=== PATIENT | female | born 1965 | race Caucasian/White ===

== ENCOUNTER 2017-03-28 12:46 | Emergency (ER) | payer SELFPAY ==
[~2017-03-28] VITALS: Ht 162.6 cm; Wt 60.0 kg
[~2017-03-28 12:46] MED LIST: MACR100C PO; SERO100T PO
[2017-03-28 12:50] VITALS: BP 132/87; PULSE 85; RESP 17; TEMP 98.4; O2SAT 99
--- NOTE | 2017-03-28 13:07 | PD ---
HPI . anxious about converting to Mosque Chief Complaint: Psychiatric Symptoms Time Seen by Provider: 13:06 Travel History International Travel<30 days: No Contact w/Intl Traveler<30days: No Traveled to known affect area: No History of Present Illness HPI 51-year-old female with multiple psychiatric visits here to the hospital complaining of being anxious about converting to Mosque. She tells me there are not enough resources or locations for her to get help with this. She says that she hears voices and they tell her to calm down. She said she is here hoping that someone can help her, but she also wants to leave. She denies any suicide or homicide. She also says she needs a place to stay. PFSH Past Medical History Autoimmune Disease: No Bipolar Disorder: Yes Anxiety: Yes Depression: Yes Cancer: No Cardiovascular Problems: No Chemotherapy: No Cerebrovascular Accident: No Diabetes: No Diminished Hearing: No Endocrine: No Gastrointestinal Disorders: No Headaches: No Immune Disorder: No Musculoskeletal: No Neurologic: Yes Psychiatric: Yes Reproductive: Yes Immunizations Current: Yes Migraines: Yes Radiation Therapy: No Schizophrenia: Yes Seizures: No Thyroid Disease: No PNEUMOCCOCAL Vaccine (Year): 2 ?: Not Menopausal: No : 3 : 3 Dilation and Curettage (D&C): Yes Past Surgical History Abdominal Surgery: No Cardiac Surgery: No Ear Surgery: No Endocrine Surgery: No Eye Surgery: No Genitourinary Surgery: No Gynecologic Surgery: Yes Neurologic Surgery: No Oral Surgery: No Thoracic Surgery: No Tonsillectomy: Yes ( CHILD) Other Surgery: Yes (LT HAND SX) Social History Alcohol Use: Yes (DAILY) Tobacco Use: Yes (ALOT) Substance Use: Yes Allergies-Medications (Allergen,Severity, Reaction): Coded Allergies: No Known Allergies (Verified , 09/28/15) Reported Meds & Prescriptions Reported Meds & Active Scripts Active Macrobid (Nitrofurantoin Macrocrystals) 100 Mg Cap 100 Mg PO BID Reported Seroquel 100 mg (Quetiapine Fumarate) 100 Mg Tab 100 Mg PO HS Review of Systems General / Constitutional: No: Fever Eyes: No: Visual changes HENT: No: Headaches Cardiovascular: No: Chest Pain or Discomfort Respiratory: No: Shortness of Breath Gastrointestinal: No: Abdominal Pain Genitourinary: No: Dysuria Musculoskeletal: No: Pain Skin: No Rash Neurologic: No: Weakness Psychiatric: Positive: Anxiety, No: Depression Endocrine: No: Polydipsia Hematologic/Lymphatic: No: Easy Bruising Physical Exam Narrative GENERAL: AAO x 3, no acute distress, Well-nourished, well-developed patient. SKIN: Warm and dry. No visible rashes or bruising. HEAD: Normocephalic and atraumatic. EYES: No scleral icterus. No injection or drainage. EOM intact, PERRLA ENT: No nasal drainage noted. Mucous membranes pink. Airway patent. NECK: Supple, trachea midline. No JVD. CARDIOVASCULAR: tachycardic on exam RESPIRATORY: Breath sounds equal bilaterally. No accessory muscle use. No rhonchi or rales. GASTROINTESTINAL: Abdomen soft, non-tender, nondistended. EXTREMITIES: No cyanosis or edema. BACK: No obvious deformity. No CVA tenderness. NEURO: CN II-12 intact, clinical documentation improvement specialist strength normal b/l, UE and LE 5/5, no focal deficits PSYCH: AAO x 3, happy and cheerful, slightly bizarre Data Data Last Documented VS Vital Signs Date Time Temp Pulse Resp B/P Pulse Ox O2 Delivery O2 Flow Rate FiO2 03/28/17 12:50 98.4 85 17 132/87 99 Orders Complete Blood Count With Diff (03/28/17 13:13) Comprehensive Metabolic Panel (03/28/17 13:13) Ed Urine Pregnancytest Poc (03/28/17 13:13) Psych Screen (03/28/17 13:13) Drug Screen, Random Urine (03/28/17 13:13) Alcohol (Ethanol) (03/28/17 13:13) MDM Medical Decision Making Medical Screen Exam Complete: Yes Emergency Medical Condition: Yes Medical Record Reviewed: Yes Differential Diagnosis Schizophrenia, anxiety, drug induced mood disorder Narrative Course 51-year-old female here with complaints of anxiety. She is not suicidal or homicidal. I recommend a psych screen with labs. I think she is just looking for a place to stay. A sitter was requested. 1323: Patient seems to have eloped. Diagnosis Primary Impression: Patient left without being seen Disposition: 07 AGAINST MEDICAL ADVICE Condition: Stable Francisca Puri Mar 28, 2017 13:07 Francisca Puri Mar 28, 2017 13:07
== END 2017-03-28 13:25 | disposition left against medical advice (07) ==
LOC: NEPD 12:46
DX: F41.9 Anxiety disorder, unspecified (principal); R44.0 Auditory hallucinations; Z72.0 Tobacco use; Z86.59 Personal history of other mental and behavioral disorders; Z86.69 Personal history of other diseases of the nervous system and sense organs; Z87.42 Personal history of other diseases of the female genital tract; Z53.20 Procedure and treatment not carried out because of patient's decision for unspecified reasons
CPT/HCPCS: 99281

== ENCOUNTER 2017-03-31 21:07 | Emergency (ER) | payer OTHER ==
[2017-03-31 21:19] VITALS: BP 134/87; PULSE 116; RESP 20; TEMP 98.8; O2SAT 97
--- NOTE | 2017-03-31 21:41 | PD ---
HPI Chief Complaint: Psychiatric Symptoms Time Seen by Provider: 21:31 Travel History International Travel<30 days: No Contact w/Intl Traveler<30days: No History of Present Illness HPI Patient is a 51 -year-old female presents emergency department for evaluation under [place] act. According to [place] act the patient was fleeing from police and ran out into traffic. She was fairly altered and states she was bipolar. Police [place] acted her because she ran out of traffic is not acting normally and brought her into the emergency department. On my evaluation patient is quite flight of ideas and clearly manic. She will state that she has no physical complaints and denies any chest pain shortness of breath abdominal pain nausea vomiting. She is unable to elaborate on her psychiatric symptoms or history. PFS Past Medical History Autoimmune Disease: No Bipolar Disorder: Yes Anxiety: Yes Depression: Yes Cancer: No Cardiovascular Problems: No Chemotherapy: No Cerebrovascular Accident: No Diabetes: No Diminished Hearing: No Endocrine: No Gastrointestinal Disorders: No Headaches: No Immune Disorder: No Musculoskeletal: No Neurologic: Yes Psychiatric: Yes Reproductive: Yes Immunizations Current: Yes Migraines: Yes Radiation Therapy: No Schizophrenia: Yes Seizures: No Thyroid Disease: No PNEUMOCCOCAL Vaccine (Year): 2 Menopausal: No : 3 : 3 Dilation and Curettage (D&C): Yes Past Surgical History Abdominal Surgery: No Cardiac Surgery: No Ear Surgery: No Endocrine Surgery: No Eye Surgery: No Genitourinary Surgery: No Gynecologic Surgery: Yes Neurologic Surgery: No Oral Surgery: No Thoracic Surgery: No Tonsillectomy: Yes ( CHILD) Other Surgery: Yes (LT HAND SX) Social History Alcohol Use: Yes (DAILY) Tobacco Use: Yes (ALOT) Substance Use: Yes Allergies-Medications (Allergen,Severity, Reaction): Coded Allergies: No Known Allergies (Verified , 09/28/15) Reported Meds & Prescriptions Reported Meds & Active Scripts Active Macrobid (Nitrofurantoin Macrocrystals) 100 Mg Cap 100 Mg PO BID Reported Seroquel 100 mg (Quetiapine Fumarate) 100 Mg Tab 100 Mg PO HS Review of Systems ROS Limitations: Psychotic Physical Exam Narrative GENERAL: Well-developed well-nourished flight of ideas and manic. SKIN: No signs of trauma on her person. HEAD: Atraumatic. Normocephalic. EYES: Pupils equal and round. No scleral icterus. No injection or drainage. ENT: No nasal bleeding or discharge. Mucous membranes pink and moist. NECK: Trachea midline. No JVD. CARDIOVASCULAR: Regular rate and rhythm. No murmur appreciated. RESPIRATORY: No accessory muscle use. Clear to auscultation. Breath sounds equal bilaterally. GASTROINTESTINAL: Abdomen soft, non-tender, nondistended. Hepatic and splenic margins not palpable. MUSCULOSKELETAL: No obvious deformities. No clubbing. No cyanosis. No edema. NEUROLOGICAL: Awake and alert. No obvious cranial nerve deficits. Motor grossly within normal limits. Normal speech. PSYCHIATRIC: Affect is labile, speech content is near flight of ideas. Patient hyperactive wandering the halls and they didn't had to be redirected the room several times requiring chemical sedation. Clearly manic. Data Data Last Documented VS Vital Signs Date Time Temp Pulse Resp B/P (MAP) Pulse Ox O2 Delivery O2 Flow Rate FiO2 03/31/17 21:19 98.8 116 20 134/87 (103) 97 Orders Orders Complete Blood Count With Diff (03/31/17 21:25) Comprehensive Metabolic Panel (03/31/17 21:25) Psych Screen (03/31/17 21:25) Drug Screen, Random Urine (03/31/17 21:25) Alcohol (Ethanol) (03/31/17 21:25) Haloperidol Inj (Haldol Inj) (03/31/17 22:45) Lorazepam Inj (Ativan Inj) (03/31/17 22:45) Labs Laboratory Tests Test 03/31/17 21:15 03/31/17 21:40 White Blood Count 6.6 TH/MM3 Red Blood Count 4.26 MIL/MM3 Hemoglobin 13.7 GM/DL Hematocrit 40.2 % Mean Corpuscular Volume 94.6 FL Mean Corpuscular Hemoglobin 32.3 PG Mean Corpuscular Hemoglobin Concent 34.1 % Red Cell Distribution Width 13.3 % Platelet Count 313 TH/MM3 Mean Platelet Volume 7.7 FL Neutrophils (%) (Auto) 44.3 % Lymphocytes (%) (Auto) 46.2 % Monocytes (%) (Auto) 7.1 % Eosinophils (%) (Auto) 2.1 % Basophils (%) (Auto) 0.3 % Neutrophils # (Auto) 2.9 TH/MM3 Lymphocytes # (Auto) 3.0 TH/MM3 Monocytes # (Auto) 0.5 TH/MM3 Eosinophils # (Auto) 0.1 TH/MM3 Basophils # (Auto) 0.0 TH/MM3 CBC Comment DIFF FINAL Differential Comment Blood Urea Nitrogen 7 MG/DL Creatinine 1.06 MG/DL Random Glucose 66 MG/DL Total Protein 8.4 GM/DL Albumin 4.2 GM/DL Calcium Level 8.4 MG/DL Alkaline Phosphatase 87 U/L Aspartate Amino Transf (AST/SGOT) 56 U/L Alanine Aminotransferase (ALT/SGPT) 37 U/L Total Bilirubin 0.4 MG/DL Sodium Level 143 MEQ/L Potassium Level 3.6 MEQ/L Chloride Level 108 MEQ/L Carbon Dioxide Level 26.7 MEQ/L Anion Gap 8 MEQ/L Estimat Glomerular Filtration Rate 55 ML/MIN Ethyl Alcohol Level 99 MG/DL Urine Opiates Screen NEG Urine Barbiturates Screen NEG Urine Amphetamines Screen NEG Urine Benzodiazepines Screen NEG Urine Cocaine Screen POS Urine Cannabinoids Screen NEG MDM Medical Decision Making Medical Screen Exam Complete: Yes Emergency Medical Condition: Yes Differential Diagnosis Zhane, drug-induced psychosis, intoxication, bipolar disorder. Narrative Course Patient is a 51-year-old female presents emergency department on [employer] act, which per the [employer] act she fled from police today and then ran out into traffic stating that she was bipolar and off her meds. On my exam the patient is clearly manic. She does endorse alcohol ingestion tonight. She has no medical complaints or findings on physical exam weren't further medical workup. She is medically cleared for psychiatric evaluation and disposition. Patient was examined with female nurse tapper supervisor present at all times. Diagnosis Primary Impression: Zhane Condition: Stable Abhinav Ramires MD Mar 31, 2017 21:41
[2017-03-31 22:33] LABS: AUTOMATED NEUTROPHIL # 2.9 TH/MM3 (1.8-7.7); BASOPHIL % 0.3 % (0.0-2.0); EOSINOPHIL # 0.1 TH/MM3 (0-0.4); EOSINOPHIL % 2.1 % (0.0-4.0); HEMATOCRIT 40.2 % (35.0-46.0); HEMO FLAGS DIFF FINAL; LYMPH % 46.2 % (9.0-44.0); MEAN CELL VOLUME 94.6 FL (80.0-100.0); MEAN CORPUSCULAR HEMOGLOBIN 32.3 PG (27.0-34.0); MEAN CORPUSCULAR HGB CONC 34.1 % (32.0-36.0); MONO % 7.1 % (0.0-8.0); NEUT % 44.3 % (16.0-70.0); PLATELET COUNT 313 TH/MM3 (150-450); RED BLOOD COUNT 4.26 MIL/MM3 (4.00-5.30); RED CELL DISTRIBUTION WIDTH 13.3 % (11.6-17.2); WHITE BLOOD COUNT 6.6 TH/MM3 (4.0-11.0)
[2017-03-31] MEDS ORDERED: HALOPERIDOL LACTATE 5 MG/ML AMP IM ONE (22:45)
[2017-03-31] MEDS ORDERED: LORazepam 2 MG/ML VIAL IM ONE (22:45)
[2017-03-31 22:54] LABS: ALKALINE PHOSPHATASE 87 U/L (45-117); TOTAL BILIRUBIN ADULT 0.4 MG/DL (0.2-1.0)
[2017-03-31 23:00] LABS: ALT (GPT) 37 U/L (10-53); ANION GAP 8 MEQ/L (5-15); AST (GOT) 56 U/L (15-37); BICARBONATE 26.7 MEQ/L (21.0-32.0); BLOOD UREA NITROGEN 7 MG/DL (7-18); CHLORIDE 108 MEQ/L (98-107); GLOMERULAR FILTRATION RATE 55 ML/MIN (>89); POTASSIUM 3.6 MEQ/L (3.5-5.1); SODIUM (NA) 143 MEQ/L (136-145)
[2017-03-31 23:01] LABS: ALCOHOL 99 MG/DL (0-5)
[2017-04-01 00:39] VITALS: BP 114/70; PULSE 111; RESP 17; O2SAT 97
[2017-04-01 06:25] VITALS: BP 113/57; PULSE 71; RESP 18; O2SAT 100
[2017-04-01 14:32] VITALS: BP 134/64; PULSE 86; RESP 18; O2SAT 99
[2017-04-01 18:06] VITALS: BP 150/83; PULSE 76; RESP 18; O2SAT 100
[2017-04-01 22:19] VITALS: BP 139/89; PULSE 101; RESP 16; O2SAT 99
[2017-04-02 02:53] VITALS: BP 156/92; PULSE 115; RESP 16; O2SAT 98
[2017-04-02 06:31] VITALS: BP 107/82; PULSE 76; RESP 18; O2SAT 99
--- NOTE | 2017-04-02 11:23 | PD ---
History of Present Illness Chief Complaint: Psychiatric Symptoms Time Seen by Provider: 11:00 Travel History International Travel<30 Days: No Contact w/Intl Traveler<30days: No Known affected area: No Legal Status Legal Status: [place] Act Marin Act Signed By: Nan Marin Act Comment: OFFICER JAIMESTEPHAN PEREA SAMANTHA #[id number] History of Present Illness: History of Present Illness HPI Patient is a 51 -year-old female with history of bipolar disorder as well as substance use disorder who presents to emergency department for evaluation under [place] act initiated by MARY KAY . According to [place] act the patient was fleeing from police and ran out into traffic. She was fairly altered and stated to police that she had bipolar disorder. Patient on presentation to ED was described as " is quite flight of ideas and clearly manic". She required ETOs Review of EMR shows she has had multiple visits to ED for psychiatric complaints dating back to 2010. Her last visit was in 2016 for reports of anxiety. Current toxicology is positive for cocaine and her BAL on arrival was 99. This morning the patient is alert, oriented, dressed in [facility] and maintaining basic hygiene. Speech is clear and logical although it is fast at times, not pressured.She is not exhibiting any psychosis, No nick. She is tangential in her speech. She reports that she was upset when she found out her boyfriend was having an affair. She admits to drinking and using cocaine as well but denies daily use. She denies any suicidal or homicidal ideation , intent or plan. In terms of treatment she reports she has an appointment at [facility] in 3 weeks and that she is compliant with her medication. PFSH Past Medical History Autoimmune Disease: No Bipolar Disorder: Yes Anxiety: Yes Depression: Yes Cancer: No Cardiovascular Problems: No Chemotherapy: No Cerebrovascular Accident: No Diabetes: No Diminished Hearing: No Endocrine: No Gastrointestinal Disorders: No Headaches: No Immune Disorder: No Musculoskeletal: No Neurologic: Yes Psychiatric: Yes Reproductive: Yes Immunizations Current: Yes Migraines: Yes Radiation Therapy: No Schizophrenia: Yes Seizures: No Thyroid Disease: No PNEUMOCCOCAL Vaccine (Year): 2 ?: Unknown Menopausal: No : 3 : 3 Dilation and Curettage (D&C): Yes Past Surgical History Abdominal Surgery: No Cardiac Surgery: No Ear Surgery: No Endocrine Surgery: No Eye Surgery: No Genitourinary Surgery: No Gynecologic Surgery: Yes Neurologic Surgery: No Oral Surgery: No Thoracic Surgery: No Tonsillectomy: Yes ( CHILD) Other Surgery: Yes (LT HAND SX) Psychiatric History Psychiatric History Hx Psychiatric Treatment: PT. STATED SHE DOES HAVE A HISTORY OF BIPOLAR DISORDER History of Inpatient Treatment: Yes ([facility] crisis) Guns or firearms in home: No Social History Single female. Lives with her boyfriend. works as a internet specialist. Hx Alcohol Use: Yes (DAILY) Hx Tobacco Use: Yes (ALOT) Hx Substance Use: Yes Substance Use Type: Alcohol, Cocaine Other Substances Used: SMOKES 1/2 PK DAILY AND DRINKS DAILY Hx of Substance Use Treatment: No Family Psychiatric History Negative Allergies-Medications (Allergen,Severity, Reaction): Coded Allergies: No Known Allergies (Verified , 09/28/15) Reported Meds & Prescriptions Reported Meds & Active Scripts Active Review of Systems Except as stated in HPI: all other systems reviewed are Neg Exam Alert: Yes [place]: Person (ox4) Mood: Calm Affect: Appropriate Speech: Clear, Fast, Tangential Eye Contact: Normal Memory Intact: Comment (not impaired) Hallucinations: Other (negative) Delusions: No Suicidal: Ideation (Deneis any) Homicidal: Ideation (Deneis any) Insight/Judgement Fair. Not impaired MDM Medical Decision Making Medical Record Reviewed: Yes Assessment/Plan Patient is a 51 -year-old female with history of bipolar disorder as well as substance use disorder who presents to emergency department for evaluation under [place] act initiated by MARY KAY . According to [place] act the patient was fleeing from police and ran out into traffic. She was fairly altered and stated to police that she had bipolar disorder. Patient under the influence of cocaine as well as alcohol when the BA was initiated. Patient was allowed time to sober up clinically. She did not present any behavioral concerns and no suicidality. She is requesting discharge and packer not meet criteria for involuntary hospitalization. At this time she is cognitively intact. Cleared for discharge from psychiatry Lift BA and follow up with [facility] Orders Orders Diet Regular Basic (04/01/17 Dinner) Diet Regular Basic (04/02/17 Breakfast) Diet Regular Basic (04/02/17 Lunch) Results Vital Signs Date Time Temp Pulse Resp B/P (MAP) Pulse Ox O2 Delivery O2 Flow Rate FiO2 04/02/17 06:31 76 18 107/82 (90) 99 04/02/17 02:53 115 16 156/92 (113) 98 04/01/17 22:19 101 16 139/89 (106) 99 Room Air 04/01/17 18:06 76 18 150/83 (105) 100 Room Air 04/01/17 14:32 86 18 134/64 (87) 99 Room Air Diagnosis Primary Impression: Cocaine abuse Additional Impression: Bipolar disorder Psychiatrically Cleared: Yes Patient Instructions: General Instructions, Cocaine Abuse (ED), Medical Clearance for Psychiatric Care (ED) Additional Instructions: DISCHARGE HOME DIAGNOSIS COCAINE ABUSE FOLLOW-UP WITH PCP NEEDED RETURN TO ED FOR WORSENING PROBLEMS Med/ Other Pt Specific Info: No Change to Meds Disposition: 01 DISCHARGE HOME Condition: Stable Problem Qualifiers Additional Impression: Bipolar disorder Rosanna Bosch Apr 02, 2017 11:23
[2017-04-02 11:39] VITALS: BP 107/82
== END 2017-04-02 12:00 | disposition home or self-care (01) ==
LOC: NEPD 21:07 → NEPJ 04-02 12:00
DX: Z02.89 Encounter for other administrative examinations (principal); F31.9 Bipolar disorder, unspecified; F10.10 Alcohol abuse, uncomplicated; F17.290 Nicotine dependence, other tobacco product, uncomplicated; F14.10 Cocaine abuse, uncomplicated
CPT/HCPCS: 80053; 80307; 85025; 96372; 99284; J1630; J2060

== ENCOUNTER 2017-11-28 02:36 | Emergency (ER) | payer SELFPAY ==
[2017-11-28 02:47] VITALS: BP 127/88; PULSE 92; RESP 16; TEMP 97.6; O2SAT 95
--- NOTE | 2017-11-28 03:19 | PD ---
HPI Chief Complaint: OD/ Ingestion Time Seen by Provider: 02:43 Travel History International Travel<30 days: No Contact w/Intl Traveler<30days: No Traveled to known affect area: No History of Present Illness HPI pt was found in a home cyanotic and apneic , EMS gave her NArcan 0.4 mg and she awoke immediately and In ER is slightly irritable with staff in ER then falls asleep and is cooperative . nasal canula 2 liters O2 . she after the narcan was awke but irritable in ER . Denies drugs and denies injury , no physical complaints,, she is sleeping but breathing 12 BPM and no desaturation on initial observation . ROS difficult as she is not providing details and denying opioid usage PFSH Past Medical History Autoimmune Disease: No Bipolar Disorder: Yes Anxiety: Yes Depression: Yes Cancer: No Cardiovascular Problems: No Chemotherapy: No Cerebrovascular Accident: No Diabetes: No Diminished Hearing: No Endocrine: No Gastrointestinal Disorders: No Headaches: No Immune Disorder: No Musculoskeletal: No Neurologic: Yes Psychiatric: Yes Reproductive: Yes Immunizations Current: Yes Migraines: Yes Radiation Therapy: No Schizophrenia: Yes Seizures: No Thyroid Disease: No PNEUMOCCOCAL Vaccine (Year): 2 ?: Not Menopausal: No : 3 : 3 Dilation and Curettage (D&C): Yes Past Surgical History Abdominal Surgery: No Cardiac Surgery: No Ear Surgery: No Endocrine Surgery: No Eye Surgery: No Genitourinary Surgery: No Gynecologic Surgery: Yes Neurologic Surgery: No Oral Surgery: No Thoracic Surgery: No Tonsillectomy: Yes ( CHILD) Other Surgery: Yes (LT HAND SX) Social History Alcohol Use: Yes (DAILY) Tobacco Use: Yes Substance Use: Yes (HEROIN) Allergies-Medications (Allergen,Severity, Reaction): Coded Allergies: No Known Allergies (Verified Adverse Reaction, Unknown, 11/28/17) Reported Meds & Prescriptions Reported Meds & Active Scripts Active Review of Systems ROS Limitations: Intoxication (narcotic overdose limits details in her ROS) Except as stated in HPI: all other systems reviewed are Neg Physical Exam Narrative GENERAL: awake alert the sleeps but easily rousable SKIN: Warm and dry. HEAD: Atraumatic. Normocephalic. EYES: Pupils equal and round. No scleral icterus. No injection or drainage. ENT: No nasal bleeding or discharge. Mucous membranes pink and moist. NECK: Trachea midline. No JVD. CARDIOVASCULAR: Regular rate and rhythm. RESPIRATORY: No accessory muscle use. Clear to auscultation. Breath sounds equal bilaterally. GASTROINTESTINAL: Abdomen soft, non-tender, nondistended. Hepatic and splenic margins not palpable. MUSCULOSKELETAL: Extremities without clubbing, cyanosis, or edema. No obvious deformities. NEUROLOGICAL: Awake and alert. No obvious cranial nerve deficits. Motor grossly within normal limits. Five out of 5 muscle strength in the arms and legs. Normal speech. PSYCHIATRIC: Appropriate mood and affect; insight and judgment normal. Data Data Last Documented VS Vital Signs Date Time Temp Pulse Resp B/P (MAP) Pulse Ox O2 Delivery O2 Flow Rate FiO2 11/28/17 07:43 11/28/17 07:40 80 14 98 Room Air 11/28/17 06:13 2.00 11/28/17 02:47 97.6 Orders Orders Ed Discharge Order (11/28/17 06:25) MDM Medical Decision Making Medical Screen Exam Complete: Yes Emergency Medical Condition: Yes Differential Diagnosis opioid over dose vs polysubstance abuse vs long acting opiod overdose other Narrative Course slept 4 hrs observation no need for narcan redosing and safe for discharge no episodes of desaturation or apneia Diagnosis Primary Impression: Opiate or related narcotic overdose Qualified Codes: T40.604A - Poisoning by unspecified narcotics, undetermined, initial encounter Patient Instructions: General Instructions, Opioid Overdose (ED) Disposition: 01 DISCHARGE HOME Condition: Good Aron Goldman MD Nov 28, 2017 03:19
[2017-11-28 06:13] VITALS: BP 93/67; PULSE 79; RESP 12; O2SAT 98
[2017-11-28 07:40] VITALS: BP 102/56; PULSE 80; RESP 14; O2SAT 98
== END 2017-11-28 08:05 | disposition home or self-care (01) ==
LOC: NEPE 02:36
DX: T40.604A Poisoning by unspecified narcotics, undetermined, initial encounter (principal); Z72.0 Tobacco use; Z86.69 Personal history of other diseases of the nervous system and sense organs; Z86.59 Personal history of other mental and behavioral disorders
CPT/HCPCS: 99283